=== PATIENT | male | born 1985 | race Caucasian/White ===

== ENCOUNTER 2023-04-12 08:29 | Outpatient (CLI) | payer OTHER, SELFPAY ==
--- NOTE | 2023-04-12 08:17 | W.ANESCHARGE ---
Anesthesia Charges Start Date/Time Anesthesia Start Date: 04/12/23 Anesthesia Start Time: 09:01 Stop Date/Time Anesthesia Stop Date: 04/12/23 Anesthesia Stop Time: 09:25
--- NOTE | 2023-04-12 09:25 | W.ANESCHARGE ---
Anesthesia Charges Start Date/Time Anesthesia Start Date: 04/12/23 Anesthesia Start Time: 09:01 Stop Date/Time Anesthesia Stop Date: 04/12/23 Anesthesia Stop Time: 09:25
== END 2023-04-12 08:30 | disposition home or self-care (01) ==
LOC: OP CLINIC 08:29
PROVIDERS: PCP Family Medicine; Visit Provider Internal Medicine
DX: K92.1 Melena (principal); K64.8 Other hemorrhoids; K57.30 Diverticulosis of large intestine without perforation or abscess without bleeding
CPT/HCPCS: 45378; 811; 812; J2704